=== PATIENT | female | born 1950 | race Caucasian/White ===

== ENCOUNTER 2019-07-29 11:46 | Outpatient (CLI) | payer MEDICARE, OTHER, SELFPAY ==
--- NOTE | 2019-07-29 12:10 | XR_ITS ---
WS: [id number] CHEST 2 VIEWS HISTORY: Bronchitis, acute, CHF COMPARISON: 12/03/2017 Lungs: Hyperinflated lungs with coarse interstitium. Interstitial thickening has slightly progressed since 12/03/2017. No mass or nodule. Biapical pleural thickening and calcification. Cardiac size: Mildly enlarged cardiac silhouette. Mediastinum/Aorta: Mild atherosclerosis aorta. Bones: Diffuse osteopenia. Increased thoracic kyphosis. Vertebral bodies are very difficult to discer n individually due to osteopenia. Prior median sternotomy. XR/XR chest 2V* [id number] IMPRESSION: 1. Chronic emphysema and interstitial fibrosis. 2. Progression of interstitial thickening since 12/03/2017. This may be progres gilbert of patient's fibrosis related to superimposed pneumonitis. No pneumonia.
== END 2019-07-29 11:47 | disposition home or self-care (01) ==
LOC: RADWPI 11:55
PROVIDERS: Family Provider Physician Assistant; PCP Electrodiagnostic Medicine; Referring Provider Electrodiagnostic Medicine; Visit Provider Electrodiagnostic Medicine
DX: J20.9 Acute bronchitis, unspecified (principal); I50.33 Acute on chronic diastolic (congestive) heart failure; J98.2 Interstitial emphysema; J84.10 Pulmonary fibrosis, unspecified
CPT/HCPCS: 71046

== ENCOUNTER 2019-08-06 10:40 | Outpatient (CLI) | payer MEDICARE, OTHER, SELFPAY ==
--- NOTE | 2019-08-06 10:55 | CT_ITS ---
WS: [id number] CT CHEST WITHOUT INTRAVENOUS CONTRAST HISTORY: COPD/OTHER INTERSTITIAL PULMONARY DZ W/ FIBROSIS TECHNIQUE: Contiguous 5 mm axial imaging performed on the thorax. Coronal and sagittal reformats are submitted. All CT scans at [facility] use at least one of these dose optimization techniq ues: automated exposure control; mA and/or kV adjustment per patient size (includes targeted exams wh ere dose is matched to clinical indication); or iterative reconstruction. CONTRAST: None DLP: 474.47 mGy.cm COMPARISON: Chest radiograph 07/29/2019 and 12/03/2017 Lungs and central airway: Marked pulmonary hyperinflation with no pneumonia. Chronic appearing periph eral interstitial thickening throughout all lobes. Greatest at the lung bases near the lingula and RI GHT middle lobe with honeycombing. There is mild bronchiectasis noted in the RIGHT lower lobe and RIG HT middle lobe and lingula. No mass or nodules. Pleura: Normal. No pleural effusion. Heart and pericardium: Moderately enlarged cardiac chambers. Severe, heavy calcification noted in the coronary arteries, greatest involving the LEFT anterior descending artery. Mediastinum and noni: Numerous mediastinal and hilar lymph nodes. These lymph nodes are not significa ntly enlarged and the normal fatty noni are still present. Vessels: Mild atherosclerosis aorta with no aneurysm. Pulmonary artery size is enlarged with a maximu m transverse diameter 3.1 cm. Chest wall and lower neck: Prior CABG and median sternotomy. Upper abdomen: Very large hiatal hernia. At least 50% of the stomach is intrathoracic. Visualized karma er is normal. Mild atherosclerosis aorta. Osseous structures: Increase in thoracic kyphosis. Reverse S-shaped thoracolumbar scoliosis. Numerous osteoporotic compression fractures are present throughout the thoracic spine. Fractures at T7, T9, T 11 and L1. No retropulsion or compromise of the thoracic cord. CT/CT chest wo con [id number] IMPRESSION: 1. Chronic emphysema with moderate interstitial fibrosis. 2. Mild bronchiectasis noted in the RIGHT lower lobe, RIGHT middle lobe and li ngula. 3. Severe tolowa dee-ni' coronary artery atherosclerosis with prior CABG. 4. Large hiatal hernia. Approximately 50% of the stomach is intrathoracic. 5. Numerous osteoporotic compression fractures.
== END 2019-08-06 10:41 | disposition home or self-care (01) ==
LOC: RAD 10:41 → RT 13:50
PROVIDERS: Family Provider Electrodiagnostic Medicine; PCP Electrodiagnostic Medicine; Visit Provider Electrodiagnostic Medicine
DX: J84.17 Other interstitial pulmonary diseases with fibrosis in diseases classified elsewhere (principal); J44.9 Chronic obstructive pulmonary disease, unspecified; J43.9 Emphysema, unspecified; J47.9 Bronchiectasis, uncomplicated; I25.10 Atherosclerotic heart disease of native coronary artery without angina pectoris; Z95.1 Presence of aortocoronary bypass graft; K44.9 Diaphragmatic hernia without obstruction or gangrene; M80.88XA Other osteoporosis with current pathological fracture, vertebra(e), initial encounter for fracture
CPT/HCPCS: 71250; 94010; 94729

== ENCOUNTER 2019-08-27 11:06 | Outpatient (CLI) | payer MEDICARE, OTHER, SELFPAY ==
[2019-08-27 12:22] LABS: C Reactive Protein 1.5 mg/L (0.0-4.9); Creatine Phosphokinase 42 U/L (26-192)
[2019-08-27 12:38] LABS: Erythrocyte Sedimentation Rate 14 mm/hr (0-15)
[2019-08-28 11:07] LABS: Aldolase 4.3 U/L (< OR = 8.1)
[2019-08-28 13:47] LABS: Cyclic Citrullinated Peptide <16 UNITS
[2019-08-28 14:12] LABS: Anti-Nuclear Antibody Screen NEGATIVE (NEGATIVE); SCL 70 <1.0 NEG AI (<1.0 NEG); SS A Ro Sjogrens Antibody <1.0 NEG AI (<1.0 NEG); SS-B/LA IGG <1.0 NEG AI (<1.0 NEG)
== END 2019-08-27 11:07 | disposition home or self-care (01) ==
LOC: LAB 11:12
PROVIDERS: Family Provider Electrodiagnostic Medicine; PCP Electrodiagnostic Medicine; Visit Provider Internal Medicine Critical Care Medicine
DX: J84.10 Pulmonary fibrosis, unspecified (principal)
CPT/HCPCS: 36415; 82085; 82550; 83516; 85651; 86038; 86140; 86235; 86431

== ENCOUNTER 2019-09-02 09:14 | Outpatient (CLI) | payer MEDICARE, OTHER, SELFPAY ==
--- NOTE | 2019-09-02 09:30 | CT_ITS ---
WS: [id number] CT CHEST WITHOUT INTRAVENOUS CONTRAST HISTORY: Pulmonary fibrosis TECHNIQUE: High-resolution chest CT with inspiration and expiration, supine and prone positioning. Al l CT scans at [facility] use at least one of these dose optimization techniques: automated exposure control; mA and/or kV adjustment per patient size (includes targeted exams where dose is ma tched to clinical indication); or iterative reconstruction. CONTRAST: None DLP: 83.57 mGy.cm COMPARISON: 08/06/2019 Lungs and central airway: Moderate pulmonary hyperexpansion. Moderate to severe honeycombing predomin antly at the lung bases bilaterally. Peripheral subpleural honeycombing and cystic areas in the perip umang of the upper lobes and RIGHT middle lobe. Prone positioning no significant improvement. Majority of the lacy reticular nodular changes remain similar on prone and supine positioning. Bronchiectasis noted in all lobes. 5 mm nodule in the periphery LEFT lower lobe is partially obscured on the prior study by interstitial thickening. Prior CABG and median sternotomy. Moderate atherosclerosis aorta. Pulmonary artery is enlarged measu ring 3.4 cm diameter. Upper abdomen: Very large hiatal hernia. Osseous structures: No destructive process. CT/CT chest wo con [id number] IMPRESSION: 1. Moderate to severe UIP. 2. Multilobar bronchiectasis. 3. Chronic emphysema. 4. Large hiatal hernia. 5. Prior CABG. 6. Pulmonary hypertension.
== END 2019-09-02 09:15 | disposition home or self-care (01) ==
LOC: CT 09:14
PROVIDERS: Family Provider Electrodiagnostic Medicine; PCP Electrodiagnostic Medicine; Visit Provider Internal Medicine Critical Care Medicine
DX: J84.10 Pulmonary fibrosis, unspecified (principal); J47.9 Bronchiectasis, uncomplicated; J43.9 Emphysema, unspecified; K44.9 Diaphragmatic hernia without obstruction or gangrene; Z95.1 Presence of aortocoronary bypass graft; I27.20 Pulmonary hypertension, unspecified
CPT/HCPCS: 71250

== ENCOUNTER 2019-11-17 10:38 | Outpatient (CLI) | payer MEDICARE, OTHER, SELFPAY ==
--- NOTE | 2019-11-17 10:47 | USCV_ITS ---
Raegan Ramirez Age: 69 Gender: F : 1950 Exam Date: 11/17/2019 10:54 Ordering Phys: Kings Diehl DO Technologist: Horacio Duarte Exam Location: [facility]_ Indication: RT PAIN AND SWELLING HISTORY: Lower extremity swelling. Lower extremity pain. PROCEDURES: Venous duplex imaging was performed in only the right lower extremity. The following venous structures were evaluated: common femoral vein, profunda vein, proximal portion of the greater saphenous vein, superficial femoral vein, and the popliteal vein. In addition, the posterior tibial and peroneal trunk were evaluated. On the right side, the common femoral, superficial femoral, profunda femoral, popliteal, posterior tibial, greater saphenous veins and the peroneal trunk were identified and interrogated in the standard fashion. These veins were found to be easily compressible with spontaneous blood flow. No evidence of insufficiency or thrombus noted. FINDINGS: Normal 2-D Doppler and augmentation and compressibility throughout the lower extremity venous structures. Additional imaging through the proximal calf veins also reveals no thrombus. Limited evaluation of the greater saphenous vein is patent with no thrombus.. The veins were found to be easily compressible with spontaneous blood flow. Non pulsatile flow pattern. CONCLUSIONS No evidence of DVT in the above-mentioned identifiable veins. Dr Leandro Mcdonald MD [facility] (Electronically Signed) Final Date: 18 Nov 2019 15:35 S
== END 2019-11-17 10:39 | disposition home or self-care (01) ==
LOC: RAD 10:42
PROVIDERS: Family Provider Electrodiagnostic Medicine; PCP Electrodiagnostic Medicine; Visit Provider Electrodiagnostic Medicine
DX: M79.604 Pain in right leg (principal); R60.0 Localized edema; K44.9 Diaphragmatic hernia without obstruction or gangrene; J84.17 Other interstitial pulmonary diseases with fibrosis in diseases classified elsewhere; J44.9 Chronic obstructive pulmonary disease, unspecified
CPT/HCPCS: 93971

== ENCOUNTER → 2020-03-02 15:35 | Outpatient (BNVA) | payer MEDICARE, OTHER, SELFPAY | PROVIDERS: Family Provider Electrodiagnostic Medicine; PCP Electrodiagnostic Medicine; Visit Provider Internal Medicine Cardiovascular Disease | DX: I25.110 Atherosclerotic heart disease of native coronary artery with unstable angina pectoris (principal) | CPT/HCPCS: 80048; 85025 ==

== ENCOUNTER 2020-03-05 14:58 | Observation (INO) | payer MEDICARE, OTHER, SELFPAY ==
[2020-03-05] VITALS (41 sets, daily range): BP systolic 101–174; BP diastolic 52–120; PULSE 72–96; RESP 15–33; TEMP 36.8; O2SAT 79–97; BMI 27.1
[2020-03-05] MEDS: diphenhydrAMINE 50 mg Capsule PO (11:58)
--- NOTE | 2020-03-05 12:30 | XACV_ITS ---
Ht: 165 cm Wt: 74 kg BSA: 1.86 m2 Gender: Female : 1950 Any Known Allergies: Other Exam Priority: Routine Procedure(s): Procedure Description: Diagnostic procedure Procedure Description: PCI procedure Procedure Description: Left Heart Catheterization Procedure Description: Right Heart Catheterization Procedure Description: O2 saturation Procedure Description: Drug Eluting Coronary Stent Procedure Description: PTCA Procedure Description: Coronary Angiography Diagnostic Findings LM has 0% stenosis. pLAD: Moderate 60% stenosis, CARMINA: 3 flow. mLAD: Moderate 65% stenosis, CARMINA: 3 flow. Proximal Circumflex Coronary Artery: Severe 95% stenosis, CARMINA: 2 flow. pRCA: Moderate 65% stenosis, CARMINA: 3 flow. mRCA: Severe 80% stenosis, CARMINA: 3 flow. RPDA: Severe 90% stenosis, CARMINA: 3 flow. BloodVessel1: Severe 90% stenosis, CARMINA: 3 flow. One graft visualized. SVG to dRCA: 100% stenosis, CARMINA: 0 flow. Coronary angiography shows co-dominance. Interventional Findings Proximal Circumflex Coronary Artery: 95% stenosis treated with AB TREK 2.50X12 RX BALLOON, MDTabitha R MARCY 3.0X15 NATE, and MDT RIP EUPHORA RX [id number] BALLOON. 0% residual stenosis, CARMINA: 3 flow. Conclusions There is severe coronary artery disease with three vessel disease. All grafts diseased. Patient has prior CABG. Proximal Circumflex Coronary Artery was treated with two Balloon and Drug Eluting Stent. 70-year-old female who underwent left heart cath for unstable angina with history of prior CABG with unknown grafts. She was found to have moderate proximal mid LAD and significant 95% proximal moderate size and caliber left circumflex artery. RCA has multiple tandem stenosis throughout and proximal mid and distal branches as defined above. We were only able to find single graft that is SVG to RCA and was chronically occluded. ACOSTA was not attached. There was no SVG to circumflex was noted. We fixed proximal circumflex artery with drug-eluting stent followed by noncompliant balloon post dilation. Aortogram was also performed to look for any other graft towards LAD or circumflex however it did not light up any grafts. We have requested for prior CABG notes. Recommendations 1-Return to inpatient for close monitoring and routine cath care 2-Risk factor modification for secondary prevention 3-Statin and aspirin 81 mg life--long, if tolerated 4-Patient was pre-loaded with 600 mg of Plavix, continue Plavix 75mg p.o. daily for at least one year. We will assess at the end of one year again to continue if further or not 5-Continue optimal medical management 6-Follow up with Dr. Nguyễn in four weeks and your primary care in 10 days . Diagnostic RX Recommendation: PCI w/o planned CABG Pressures Phase:Rest AO : 178 mmHg / 77 mmHg ( 118 mmHg ) @ 8:47:00 AM 154 mmHg / 61 mmHg ( 100 mmHg ) @ 9:04:00 AM 154 mmHg / 61 mmHg ( 99 mmHg ) @ 9:04:00 AM 140 mmHg / 70 mmHg ( 102 mmHg ) @ 9:07:00 AM LV : 158 mmHg / -7 mmHg / @ 9:04:00 AM 159 mmHg / -7 mmHg / @ 9:04:00 AM 159 mmHg / -6 mmHg / @ 9:04:00 AM RV : 39 mmHg / -17 mmHg / @ 8:31:00 AM 38 mmHg / -16 mmHg / @ 8:31:00 AM 47 mmHg / -7 mmHg / @ 8:40:00 AM 51 mmHg / -1 mmHg / @ 8:41:00 AM PA : 43 mmHg / 6 mmHg ( 19 mmHg ) @ 8:37:00 AM 50 mmHg / 10 mmHg ( 29 mmHg ) @ 8:38:00 AM RA : a wave = v wave = mean = 6 mmHg @ 8:42:00 AM O2 Content Phase:Rest PA : O2 Content O2: 62.6 % @ 8:47:00 AM Saturations Phase:Rest AO : 86 % @ 9:07:00 AM RA : 62 % @ 9:04:00 AM RV : 60 % @ 9:04:00 AM PA : 63 % @ 8:47:00 AM Cardiac Output Phase:Rest Dominique : 4 l/min @ 8:47:00 AM Dominique Cardiac Index: 2 L/min/m2 @ 8:47:00 AM Valves Phase:DefaultPhase AV : 5.0 mmHg @ 2:38:35 PM AV Mean Gradient: 6.0 mmHg @ 2:38:35 PM 6.0 mmHg @ 2:38:35 PM Clinical Evaluation EBL: 5mL-10mL Procedural Details Procedure Consent Obtained. Pre-Procedure Time Out. Identified patient by full name and date of as verbalized by the patient/guarantor. Does the consent match the physician's order: Yes. Accurate & Complete Informed Consent: Yes. Inpatient/Outpatient History & Physical on Chart: Yes. If H&P is completed, is and addenduem needed: N/A; If yes, is the addendum complete: N/A. Visualize and Verify Site with Patient/Guarantor: N/A. Relevant Radiology Images available: Yes. Pre-op teaching completed and patient verbalized understanding. The risks, benefits, and alternatives of sedation and/or procedure were discussed by physician. The patient agrees to continue. Procedure started. Correct patient, site and procedure confirmed by cath team. PERRLA. Strong, equal hand top precipitator operator helper bilaterally. Lungs clear x 5 lobes. IV Site on Arrival: 18 gauge in the left anticubital. IV Fluids: 0.9% NaCl at KVO. 0 mL infused prior to laboratory monitor. Pre Procedural Pulses: bilateral dorsalis pedis was 3+. Pre Procedural Pulses: bilateral posterior tibial was 3+. Pre Procedural Pulses: bilateral radial was 3+. Oxygen started at 2liters/min via nasal canula. bilateral groins was prepped with chloroprep then draped in the usual sterile fashion. Physician notified. Baseline sample Acquired. HR: 79 BPM. Equipment: 6F - Femoral. Cardiac Cath Pack. ACIST Manifold Kit Model BT 2000. Heparinized Saline (2 units/mL), 1000 mL bag. Kit, Micropuncture. Physician arrived. Physician scrubbed in. Immediate Pre-Procedure Time Out. Correct Patient: Yes; Correct Procedure: Yes; Correct Site: Yes; Correct Patient Position: Yes; Correct Supplies: Yes; Dried Flammable Prep: Yes; Blood Products Available: No;. Lidocaine 1% infiltrated to the right groin. Patient's family updated. pt placed on room air for right heart cath. Venous access obtained with a micropuncture set. Arterial access obtained with micropuncture set. wire and needle out. [place] MON catheter inserted. Inventory is TR Glidewire Angled .025 180cm. glidewire inserted into swan. wire out. [place] out. A 5 bahamian JL4 catheter in over wire. Multiple views taken of left coronary artery. pt placed on 2 lpm nc. Catheter out. A 5 bahamian JR4 catheter in over wire. SVG to RCA occluded. ACOSTA to LAD visualized. Side port of sheath attached to Normal Saline flush at KVO to maintain patency. EDP Sample taken: LV 158/-8,17; HR: 82 BPM; SpO2: 99%. Pullback taken: LV 159/-7,17; AO 154/61(100); Mean: 6mmHg, Peak to Peak: 5mmHg, SEP: 22sec/min; HR: 82 BPM; SpO2: 99%. Aortogram performed in WOLOF @ 20 mL/second for a total of 40 mL. A 5 bahamian Angled Pig catheter in over wire. Inventory is TR 180cm Runthrough NS extra floppy 0.014 wire. 6 bahamian XB 3 guide catheter was inserted over the wire. Runthrough guidewire was advanced through the guide catheter to lesion in the prox Circ. Inflation number : 1 A AB TREK 2.50X12 RX BALLOON was prepped and advanced across the Prox CX , then inflated to 12 JONNATHAN for 0:15 seconds. Inflation number: 2 The AB TREK 2.50X12 RX BALLOON was reinflated across the Prox CX, to 18 JONNATHAN for 0:14 seconds. Results checked. Balloon out. Inflation Number : 3 A MDT R MARCY 3.0X15 NATE -Lot Number# [id number] exp 09-08-2021 was prepped and advanced across the Prox CX. The stent was deployed at 14 JONNATHAN for 0:18 seconds. Stent balloon out over wire. Inflation number : 4 A MDT NC EUPHORA RX [id number] BALLOON was prepped and advanced across the Prox CX , then inflated to 14 JONNATHAN for 0:12 seconds. Inflation number: 5 The MDT NC EUPHORA RX [id number] BALLOON was reinflated across the Prox CX, to 15 JONNATHAN for 0:20 seconds. Wire out. ACT drawn. Results 254 seconds. Therapeutic limits - pre-heparin administration 90-150 seconds and monitoring heparin during a vascular procedure >250 seconds. Guide catheter out. A Suture was successful obtaining hemostatsis at the Right Femoral vein insertion site. A Suture was successful obtaining hemostatsis at the Right Femoral artery insertion site. Sheath(s) sutured into position with 2-0 silk and sterile 4x4's and Op-site applied over the site. No oozing or signs and symptoms of hematoma noted. Arterial sheath flushed and connected to tranducer and pressure bag with heparinized saline. Post Procedure: Pulses reassessed and unchanged. PERRLA. Strong, equal hand top precipitator operator helper bilaterally. No VTE prophylaxis required. Fluoro: 23:00. Contrast type used: Omnipaque 300 mgI/mL, 500 mL bottle. [id number]. PCI Indication: New Onset Angina. Post-op diagnosis: obstructive CAD. Complications: none. Estimated blood loss: 5mL-10mL. Procedure completed. Total IV fluids: 154 mL. Medication's Wasted: Heparin = 2000 units. Medication's Wasted: Lidocaine 1% = 2 mL. Medication's Wasted: Other = versed 1. mg. Medication's Wasted: Other = fentanyl 50 mcg. Patient transferred by bed to 1st floor. Vital chart was stopped. Site: Right Femoral vein Sheath Size: 6 Fr Hemostasis Method: Suture Hemostasis Success: Successful Site: Right Femoral artery Sheath Size: 6 Fr Hemostasis Method: Suture Hemostasis Success: Successful Procedure Medications Start: 1:05 PM Stop: 1:05 PM Medication: Versed Amount: 1 mg Route: I.V. Start: 1:05 PM Stop: 1:05 PM Medication: Fentanyl Amount: 50 mcg Route: I.V. Start: 1:11 PM Stop: 1:11 PM Medication: Versed Amount: 1 mg Route: I.V. Start: 1:11 PM Stop: 1:11 PM Medication: Fentanyl Amount: 50 mcg Route: I.V. Start: 1:40 PM Stop: 1:40 PM Medication: Versed Amount: 1 mg Route: I.V. Start: 2:03 PM Stop: 2:03 PM Medication: Heparin Amount: 5000 units Route: I.V. Start: 2:03 PM Stop: 2:03 PM Medication: Versed Amount: 1 mg Route: I.V. Start: 2:11 PM Stop: 2:11 PM Medication: Heparin Amount: 2000 units Route: I.V. Start: 2:19 PM Stop: 2:19 PM Medication: Versed Amount: 1 mg Route: I.V. Start: 2:19 PM Stop: 2:19 PM Medication: Fentanyl Amount: 50 mcg Route: I.V. I, the attending physician, have reviewed and verified all procedure medications. Yes, all medications given per verbal order History/Risk Factors Hypertension: Yes Dyslipidemia: No Peripheral Arterial Disease (PAD): No Myocardial Infarction (NH): No Obesity: Yes Renal Disease: No Tobacco Use: Former Prior Interventions PCI: No CABG: Yes Valve Surgery: No Report Signatures Finalized by:Tiana Nguyễn MD on 03/14/2020 2:27:41 PM
[2020-03-05 17:12] LABS: Partial Thromboplastin Time 174.9 SECONDS (23.9-36.7)
[2020-03-05] MEDS: metoprolol tartrate 25 mg Tablet PO (17:54)
--- NOTE | 2020-03-05 18:32 | PC.NURSE ---
Patient does not have any complaints at this time. Patient was assisted onto bedpan by 2 nurses and back off. Patient educated on bedrest and post-cath activity restrictions and verbalized understanding. Call light is within reach. Will monitor.
[2020-03-05 18:36] LABS: Partial Thromboplastin Time 57.7 SECONDS (23.9-36.7)
[2020-03-05 20:26] LABS: Partial Thromboplastin Time 31.9 SECONDS (23.9-36.7)
[2020-03-05] MEDS: ondansetron 2 mg/ML SDV 2 mL 4 MG IVP (21:56)
[2020-03-05] MEDS: fentaNYL 50 mcg/mL INJ 2mL IVP (22:15)
--- NOTE | 2020-03-05 22:18 | PC.NURSE ---
Arterial sheath removed at 2130. Difficulty controlling bleeding. Dr. Nguyễn contacted and came to room. Dr. Nguyễn able to gain control. Venous sheath removed and manual pressure held. Patient developed hematoma to right groin after sheath was removed, which is now soft. Patient's vital signs remained stable throughout. Patient has been educated on activity restrictions and bedrest and verbalized understanding. Will monitor patient frequently.
[2020-03-06] VITALS (21 sets, daily range): BP systolic 109–151; BP diastolic 62–74; PULSE 76–93; RESP 14–25; TEMP 36.6; O2SAT 91–98
--- NOTE | 2020-03-06 02:33 | PC.NURSE ---
No changes in site to right groin. no hematoma present at this time. VSS. Will monitor.
--- NOTE | 2020-03-06 04:17 | PC.NURSE ---
Patient ambulated with nurse. Right groin site has no changes and is WNL before and after. VSS before and after.
[2020-03-06 05:41] LABS: Basophils # 0.1 10^3/uL (0.0-0.1); Basophils % 0.6 %; Eosinophils # 0.1 10^3/uL (0.0-0.8); Eosinophils % 1.7 %; Hematocrit 35.2 % (37.0-47.0); Hemoglobin 10.8 g/dL (11.5-15.3); Lymphocytes # 1.3 10^3/uL (0.8-4.8); Lymphocytes % 15.3 %; Mean Corpuscular HGB Conc 30.7 g/dL (30.0-36.0); Mean Corpuscular Hemoglobin 27.8 pg (28.0-34.0); Mean Corpuscular Volume 90.7 fL (81-99); Mean Platelet Volume 9.9 fL (7.4-10.4); Monocytes # 0.6 10^3/uL (0.2-0.9); Monocytes % 7.8 %; Neutrophils # 6.12 10^3/uL (1.8-7.7); Neutrophils % 74.2 %; Nucleated Red Blood Cells % 0 %; Platelet Count 150 10^3/cmm (130-400); Red Blood Count 3.88 10^6/uL (4.1-5.3); Red Cell Distribution Width 14.9 % (12.1-15.1); White Blood Count 8.2 10^3/uL (4.0-10.0)
[2020-03-06 06:09] LABS: Blood Urea Nitrogen 8 mg/dL (8-23); Calcium 8.2 mg/dL (8.5-10.5); Carbon Dioxide 24 mmol/L (22-29); Chloride 108 mmol/L (98-107); Glucose 102 mg/dL (65-115); Osmolality Calculated 286 mOsm/kg (285-295); Sodium 140 mmol/L (136-145)
[2020-03-06 06:15] LABS: Anion Gap 12.5 (5-19); Potassium 4.5 mmol/L (3.5-5.1)
[2020-03-06] MEDS: isosorbide mononitrate ER 30 mg Tablet PO (09:04)
[2020-03-06] MEDS: metoprolol tartrate 25 mg Tablet PO (09:04)
[2020-03-06] MEDS: clopidogrel 75 mg Tablet PO (09:04)
[2020-03-06] MEDS: aspirin 81 mg EC Tablet PO (09:46)
[2020-03-06] MEDS: alum-mag-hydroxide-sime 30 mL UDC PO (09:46)
--- NOTE | 2020-03-06 10:22 | PM.DCS ---
Discharge Providers Date of Admission: 03/05/20 14:58 Date of Discharge: March 06, 2020 Attending Provider at Admission: Tiana Nguyễn MD Attending Provider at Discharge: Adria Wright MD Primary Care Provider: Kings Diehl DO Diagnoses at Discharge Discharge Diagnosis (1) Status post coronary artery stent placement: Status: Acute (2) CAD (coronary artery disease): Status: Acute (3) Pulmonary hypertension: Status: Acute (4) Essential (primary) hypertension: Status: Acute Reason for Visit Reason for Visit: Brief History: 70-year-old female past medical history significant for history of tobacco abuse, history of COPD with severe pulmonary hypertension, history of CABG x3, 4 years ago recently been referred to Dr. Nguyễn for worsening of shortness of breath, chest pressure upon mild exertion. According to the patient last few months has been downhill. She started noticing increasing fatigue with chest pressure upon mild to moderate exertion and now to the extent that taking few steps can make her extremely short of breath and brings a chest pain on. She has to sit down to get over it. Nitroglycerin relieves the chest pain. At occasion she has been awakened from the sleep with chest pain. She has not had recent stress test. She does not think that she can do the stress test as chest pain is occurring on daily basis. She denies otherwise PND orthopnea presyncope or syncope recent echocardiogram showed ejection fraction to be normal 65%. Given her significant chest pain history plan was to perform right and left heart cath. Hospital Course Hospital Course: Patient came for right and left heart cath. Coronary angiography demonstrated occluded SVG to RCA no other grafts were found on aortogram. ACOSTA was not used as a graft. There was severe 95% stenosis of proximal left circumflex artery that underwent PCI with a drug-eluting stent. She was put on aspirin and Plavix. Her Imdur was stopped and beta-glen was uptitrated. She has documented significant adverse effects with statins. On post procedure day 1, she was doing well. Her groin access site was normal without any evidence of hematoma. She denied any chest pain, shortness of breath or palpitations. Patient was discharged in a stable condition. Physical Exam Narrative: EXAM NARRATIVE: GENERAL: Patient is alert, awake and oriented x3. [] NECK: No jugular vein distension. [] HEENT: No cyanosis. No icterus. No pallor. [] HEART: Regular S1 and S2. No murmur, rub or gallop. [] LUNGS: Bilateral crackles present [] ABDOMEN: Soft, nontender and nondistended. Positive bowel sounds. No guarding, rebound or tenderness. [] CENTRAL NERVOUS SYSTEM: Grossly nonfocal. [] EXTREMITIES: Lower extremities with no significant edema bilaterally. Pulses palpable in the lower extremities, both dorsalis pedis and posterior tibial. [] Discharge Data Data Completed and Pending: Pending at discharge Category Date Time Status ROUTE [employer]OR request for service Routin e Exams 03/05/20 12:30 Taken Labs from last 24 hours 03/06/20 03/06/20 03/05/20 05:00 05:00 20:00 WBC 8.2 RBC 3.88 L Hgb 10.8 L Hct 35.2 L MCV 90.7 MCH 27.8 L MCHC 30.7 RDW 14.9 Plt Count 150 MPV 9.9 Neut % (Auto) 74.2 Lymph % (Auto) 15.3 [place] % (Auto) 7.8 Eos % (Auto) 1.7 Baso % (Auto) 0.6 Neut # (Auto) 6.12 Lymph # (Auto) 1.3 [place] # (Auto) 0.6 Eos # (Auto) 0.1 Baso # (Auto) 0.1 Nucleated RBC % (a uto) 0 Nucleated RBCs # 0.0 APTT 31.9 Sodium 140 Potassium 4.5 Chloride 108 H Carbon Dioxide 24 Anion Gap 12.5 BUN 8 Creatinine 0.6 GFR Calculation Not Reportable Glucose 102 Calculated Osmolal ity 286 Calcium 8.2 L 03/05/20 03/05/20 18:16 16:28 WBC RBC Hgb Hct MCV MCH MCHC RDW Plt Count MPV Neut % (Auto) Lymph % (Auto) [place] % (Auto) Eos % (Auto) Baso % (Auto) Neut # (Auto) Lymph # (Auto) [place] # (Auto) Eos # (Auto) Baso # (Auto) Nucleated RBC % (a uto) Nucleated RBCs # APTT 57.7 H D 174.9 H* Sodium Potassium Chloride Carbon Dioxide Anion Gap BUN Creatinine GFR Calculation Glucose Calculated Osmolal ity Calcium Vitals: Last Vital Signs Temp 97.9 F 03/06/20 08:00 Pulse 86 03/06/20 08:00 Resp 18 03/06/20 08:00 BP 109/68 03/06/20 08:00 Pulse Ox 94 03/06/20 08:00 Discharge Plan Discharge Patient Disposition: Home Condition: Stable Prescriptions: New clopidogrel 75 mg Tablet 75 mg PO DAILY Qty: 30 RF: 6 aspirin 81 mg Tablet,Delayed Release (Dr/Ec) 81 mg PO DAILY Qty: 30 RF: 3 Continued cholecalciferol (vitamin D3) 100 mcg (4,000 unit) capsule 100 mcg PO DAILY RF: 0 magnesium oxide 400 mg magnesium capsule 400 mg PO DAILY RF: 0 vitamin B complex [B Complex-Vitamin B12] Tablet 1 tab PO DAILY RF: 0 esomeprazole magnesium [Nexium] 40 mg capsule,delayed release(DR/EC) 40 mg PO DAILY RF: 0 clopidogrel [Plavix] 75 mg tablet 75 mg PO DAILY Qty: 60 RF: 3 metoprolol tartrate 25 mg tablet 50 mg PO BID Qty: 120 RF: 6 Discontinued metoprolol tartrate 25 mg tablet 25 mg PO BID RF: 0 isosorbide mononitrate 30 mg tablet extended release 24 hr 30 mg PO DAILY Qty: 30 RF: 3 Discharge Orders: Discharge Order (Routine); Ordered 03/06/20 Ordered By: Adria Wright Referrals: Tiana Nguyễn MD [Physician] - 1 month ([facility] WILL CALL YOU ON SUNDAY MORNING WITH AN APPOINTMENT TO SEE DR. NGUYỄN TO BE SEEN IN 4 WEEKS. IF YOU HAVE NOT HEARD FROM [facility] BY SUNDAY AFTERNOON, PLEASE CALL THEM AT [phone]. ) Maribel Nichols FNP [Nurse Practitioner] - 7-10 days ([facility] WILL CALL YOU SUNDAY MORNING WITH A FOLLOW UP APPOINTMENT TO BE SEEN IN 7-10 DAYS WITH MARIBEL NICHOLS NP. IF YOU HAVEN'T HEARD FROM [facility] BY SUNDAY AFTERNOON, PLEASE CALL THEM AT [phone]. ) Discharge Diet: Cardiac Discharge Activity: Increase activity as tolerated Patient Instructions: Left Heart Catheterization (DC) Activity Restrictions/Additional Instructions: Please do not lift more than 5 pounds of weight for the next 1 week Discharge Date/Time: 03/06/20 11:45 Discharge Attestations Time Spent in Discharge Care*: greater than 30 min Quality Metrics Clinical Quality Measures During this hospital stay, did patient experience: None Coding Level of Care Code Acute Program Management Manager for Chg Fwd Diagnoses Status post coronary artery stent placement Z95.5 CAD (coronary artery disease) I25.10 Pulmonary hypertension I27.20 Essential (primary) hypertension I10
--- NOTE | 2020-03-06 11:29 | PC.CHAP ---
Pastoral Care Encounter/Spiritual Assessment Type of Contact [] Declined railway station manager visit [] Patient/Family/Request visit [] Outpatient visit [] Follow-up visit [] Physician referral [] Code/Alert [X] Routine visit [] Staff referral [] Actively dying [] Patient sleeping [] Family support [] [] Out of room [] Palliative care [] [] Receiving care in room [] Pre-surgical visit [] Trauma [] Long length of stay [] ICU visit [] Other: Relational/Emotional Strength [X] Patient feels connected with others/family/visitors/staff [] Distress [] Loneliness/isolation [] Abandonment Spirituality of Patient [X] Person of Noemi [] Attends Advent of their Noemi [X] Believes in Prayer [] Reads Bible or Confucianism materials [] There are Spiritual issues to be addressed [employer] Custodian Interventions [X] Prayer [X] Active listening [X] Non-anxious presence [] Spiritual/emotional support [] Crisis/trauma care [] Spiritual counseling [] Bereavement support [] Provided bereavement packet [] Provided Bible/devotional materials [] Provided toy/stuffed animal, coloring book to patient or family member [] Provided Communion [] Anointing/[place] [] Salvation [X] Completed spiritual assessment [] Other: Impact on Illness or Injury [] Angry [] Fearful [] Anxious [] Often cries [] Exhaustion [] Unable to work [] Unable to attend yazidi [] Unable to walk/stand [] Unable to read [] Unable to drive [] Unable to eat/drink [] Unable to sleep [] Unable to be with family [] Patient intubated [] Other: Summary: Pt feeling much better since her stint was placed. She also has pulmonary fibrosis requiring oxygen at home. Despite the health issues, she remains fiercely independent. Her sister and extended family live in the area, and she is connected with them. Her focus is primarily on maintaining her quality of life, as she defines it for herself. Time spent with patient: 15 mins
--- NOTE | 2020-03-16 20:33 | W.PM.OPSUD ---
Surgery/Procedure H&P Update DATE OF PROCEDURE: March 16, 2020 DATE H&P PERFORMED: 03/02/20 H&P UPDATE INFORMATION: I have reviewed H&P completed within last 30 days, I have examined patient prior to procedure and No changes to prior documentation PREOP DIAGNOSIS: chest pain PLANNED PROCEDURE: Operation Date: 03/05/20 12:30 Proposed Procedures p Cardiac Catheterization(Bilateral) - Tiana Nguyễn MD PATIENT REASSESSED PRIOR TO SEDATION, WITH NO CHANGE NOTED: Yes PHYSICAL EXAM: alert, oriented x 3, clear to auscultation bilaterally and regular rate & rhythm AIRWAY EVAL/ANESTHESIA PLAN: ASA II, Risks, benefits & alternatives of sedation and/or procedure discussed and Patient agrees to continue as planned
== END 2020-03-06 11:45 | disposition home or self-care (01) ==
LOC: CSU 03-06 10:21
PROVIDERS: Admitting Provider Internal Medicine Cardiovascular Disease; PCP Electrodiagnostic Medicine; Visit Provider Internal Medicine Cardiovascular Disease
DX: I25.110 Atherosclerotic heart disease of native coronary artery with unstable angina pectoris (principal); I27.20 Pulmonary hypertension, unspecified; I10 Essential (primary) hypertension; J44.9 Chronic obstructive pulmonary disease, unspecified; R07.9 Chest pain, unspecified; Z79.82 Long term (current) use of aspirin; Z79.02 Long term (current) use of antithrombotics/antiplatelets; Z95.1 Presence of aortocoronary bypass graft
CPT/HCPCS: 12345; 36415; 80048; 85025; 85347; 85730; 93461; 96375; C1725; C1751; C1769; C1874; C1887; C1894; C9600; G0378; J1644; J2250; J2405; J3010; J3490; J7030; Q0163; Q9967

== ENCOUNTER → 2020-03-12 11:34 | Outpatient (BNVA) | payer MEDICARE, OTHER, SELFPAY | PROVIDERS: PCP Electrodiagnostic Medicine; Visit Provider Nurse Practitioner Family | DX: I25.10 Atherosclerotic heart disease of native coronary artery without angina pectoris (principal) | CPT/HCPCS: 80048 ==

== ENCOUNTER 2020-05-27 10:03 | Outpatient (RCR) | payer MEDICARE, OTHER, SELFPAY | END 2020-06-14 23:59 | disposition home or self-care (01) | LOC: PULRHB 10:03 | PROVIDERS: PCP Electrodiagnostic Medicine; Visit Provider Internal Medicine Critical Care Medicine | DX: I27.20 Pulmonary hypertension, unspecified (principal) | CPT/HCPCS: 94618; G0237; G0238; G0239 ==

== ENCOUNTER 2020-06-15 06:00 | Outpatient (RCR) | payer MEDICARE, OTHER, SELFPAY | END 2020-07-15 23:59 | disposition home or self-care (01) | LOC: PULRHB 06:00 | PROVIDERS: PCP Electrodiagnostic Medicine; Visit Provider Internal Medicine Critical Care Medicine | DX: J44.9 Chronic obstructive pulmonary disease, unspecified (principal) | CPT/HCPCS: G0237; G0238 ==

== ENCOUNTER 2020-06-24 09:45 | Outpatient (CLI) | payer MEDICARE, OTHER, SELFPAY ==
--- NOTE | 2020-06-24 10:00 | CT_ITS ---
WS: [id number] CTA OF THE CHEST WITH PULMONARY EMBOLISM PROTOCOL TECHNIQUE: High-resolution contrast enhanced CTA of the chest with coronal and sagittal reformatted i mages with pulmonary embolism protocol. MIP images are also reviewed. CLINICAL INFORMATION: Shortness of breath COMPARISON: CT chest 09/02/2019 and 08/06/2019 DLP: 674.[address] scans at [facility] use at least one of these dose optimization techniques: automat ed exposure control; mA and/or kV adjustment per patient size (includes targeted exams where dose is matched to clinical indication); or iterative reconstruction. FINDINGS: Proximal main pulmonary arteries are patent. Segmental and subsegmental pulmonary arteries are patent . No evidence of pulmonary embolus. Prior sternotomy. Large esophageal hiatal hernia. Moderate chronic emphysematous changes. No acute pu lmonary infiltrates. No consolidation or pleural fluid. Scattered areas of fibrosis. No mediastinal o r hilar lymphadenopathy. No axillary lymphadenopathy. Adrenal glands are normal. Thoracic scoliosis convex right. Chronic compression deformities mid and lower thoracic spine. Thorac ic kyphosis. Adrenal glands are normal. CT/CT angio chest PE protcl [id number] IMPRESSION: 1. No evidence of pulmonary embolus. 2. Advanced chronic emphysematous changes. No acute pulmonary infiltrates. 3. Scattered areas of fibrosis with pleural plaques in the right upper lobe. H istory of UIP. 4. Thoracic scoliosis and kyphosis with chronic appearing compression deformit ies.
[2020-06-24 10:19] LABS: Blood Urea Nitrogen 14 mg/dL (8-23)
[2020-06-24] MEDS: iohexol 350 mg/mL 100 mL Btl IV (10:31)
== END 2020-06-24 09:46 | disposition home or self-care (01) ==
LOC: RADWPI 09:49
PROVIDERS: Internal Medicine Cardiovascular Disease; PCP Electrodiagnostic Medicine; Visit Provider Internal Medicine Critical Care Medicine
DX: R06.02 Shortness of breath (principal); I25.810 Atherosclerosis of coronary artery bypass graft(s) without angina pectoris; M41.84 Other forms of scoliosis, thoracic region
CPT/HCPCS: 71275; 82565; 84520; Q9967

== ENCOUNTER 2020-07-16 06:00 | Outpatient (RCR) | payer MEDICARE, OTHER, SELFPAY | END 2020-08-15 23:59 | disposition home or self-care (01) | LOC: PULRHB 06:00 | PROVIDERS: PCP Electrodiagnostic Medicine; Visit Provider Internal Medicine Critical Care Medicine | DX: I27.20 Pulmonary hypertension, unspecified (principal) | CPT/HCPCS: G0237; G0238 ==

== ENCOUNTER 2020-08-16 06:00 | Outpatient (RCR) | payer MEDICARE, OTHER, SELFPAY | END 2020-09-12 23:59 | disposition home or self-care (01) | LOC: PULRHB 06:00 | PROVIDERS: PCP Electrodiagnostic Medicine; Visit Provider Internal Medicine Critical Care Medicine | DX: I27.20 Pulmonary hypertension, unspecified (principal) | CPT/HCPCS: G0237; G0238 ==

== ENCOUNTER 2020-09-13 06:00 | Outpatient (RCR) | payer MEDICARE, OTHER, SELFPAY | END 2020-10-13 23:59 | disposition home or self-care (01) | LOC: PULRHB 06:00 | PROVIDERS: PCP Electrodiagnostic Medicine; Visit Provider Internal Medicine Critical Care Medicine | DX: I27.20 Pulmonary hypertension, unspecified (principal) | CPT/HCPCS: G0237; G0238; G0239 ==

== ENCOUNTER 2020-10-18 11:40 | Outpatient (CLI) | payer MEDICARE, OTHER, SELFPAY ==
[2020-10-18 12:29] LABS: Basophils # 0.1 10^3/uL (0.0-0.1); Basophils % 0.7 %; Eosinophils # 0.5 10^3/uL (0.0-0.8); Eosinophils % 4.3 %; Hematocrit 36.7 % (37.0-47.0); Hemoglobin 11.2 g/dL (11.5-15.3); Lymphocytes # 2.3 10^3/uL (0.8-4.8); Lymphocytes % 21.5 %; Mean Corpuscular HGB Conc 30.5 g/dL (30.0-36.0); Mean Corpuscular Hemoglobin 25.3 pg (28.0-34.0); Mean Corpuscular Volume 82.8 fL (81-99); Monocytes # 0.8 10^3/uL (0.2-0.9); Monocytes % 7.2 %; Neutrophils # 7.05 10^3/uL (1.8-7.7); Neutrophils % 65.8 %; Nucleated Red Blood Cells % 0 %; Platelet Count 297 10^3/cmm (130-400); Red Blood Count 4.43 10^6/uL (4.1-5.3); Red Cell Distribution Width 15.8 % (12.1-15.1); White Blood Count 10.7 10^3/uL (4.0-10.0)
[2020-10-18 12:39] LABS: Alanine Aminotransferase 19 U/L (0-33); Albumin Level 3.8 g/dL (3.5-5.2); Alkaline Phosphatase 87 IU/L (35-105); Anion Gap 11.4 (5-19); Aspartate Amino Transferase 16 U/L (0-32); Blood Urea Nitrogen 15 mg/dL (8-23); Calcium 9.2 mg/dL (8.5-10.5); Carbon Dioxide 25 mmol/L (22-29); Chloride 105 mmol/L (98-107); Globulin 2.5 g/dL (1.3-4.6); Glucose 100 mg/dL (65-115); Osmolality Calculated 287 mOsm/kg (285-295); Potassium 3.4 mmol/L (3.5-5.1); Sodium 138 mmol/L (136-145); Total Bilirubin 0.4 mg/dL (0.15-1.2); Total Protein 6.3 g/dL (6.6-8.7)
== END 2020-10-18 11:41 | disposition home or self-care (01) ==
LOC: LAB 11:47
PROVIDERS: PCP Electrodiagnostic Medicine; Visit Provider Internal Medicine Critical Care Medicine
DX: J84.112 Idiopathic pulmonary fibrosis (principal)
CPT/HCPCS: 36415; 80053; 85025

== ENCOUNTER 2020-11-16 13:52 | Outpatient (CLI) | payer MEDICARE, OTHER, SELFPAY ==
--- NOTE | 2020-11-16 14:00 | CT_ITS ---
WS: [id number] CT CHEST ANGIOGRAPHY WITH REFORMATS HISTORY: DYSPNEA AT REST, SLEEP APNEA, COPD TECHNIQUE: Contiguous axial images are obtained through the chest during arterial injection of intrav enous contrast. Images are reconstructed to evaluate the pulmonary arteries. MIP imaging also reviewe d. All CT scans at [facility] use at least one of these dose optimization techniques: aut omated exposure control; mA and/or kV adjustment per patient size (includes targeted exams where dose is matched to clinical indication); or iterative reconstruction. CONTRAST: Omnipaque 350; 95 mL IV. DLP: 692.38 mGycm COMPARISON: 06/24/2020 Excellent opacification of the pulmonary arteries. No filling defects or pulmonary emboli. Moderate a therosclerotic plaque within the aorta. Calcified plaque and intimal thickening with no aneurysm. Med iastinal and hilar lymph nodes are stable. Indeterminate but stable lymph nodes measuring up to 10 mm . Pleural plaque at the apices bilaterally. There is extensive pulmonary fibrotic changes bilaterally greatest in the lung bases. Honeycombing with traction bronchiectasis. No significant progression of UIP since the prior study. No pneumonia. Prior CABG. Large hiatal hernia. Tricuspid regurgitation into the hepatic veins. RIGHT convex curvature thoracic spine. 50% L1 compression fracture. Mild anterior wedging of T7, T9 a nd T11. CT/CT angio chest PE protcl [id number] IMPRESSION: 1. No pulmonary embolism. 2. Pulmonary fibrosis is unchanged. 3. Prior compression fractures at T7, T9, T11 and L1. 4. Large hiatal hernia.
[2020-11-16] MEDS: iohexol 350 mg/mL 100 mL Btl IV (14:28)
== END 2020-11-16 13:53 | disposition home or self-care (01) ==
LOC: RADWPI 13:58
PROVIDERS: PCP Electrodiagnostic Medicine; Visit Provider Electrodiagnostic Medicine
DX: R06.00 Dyspnea, unspecified (principal); G47.30 Sleep apnea, unspecified; J44.9 Chronic obstructive pulmonary disease, unspecified; K44.9 Diaphragmatic hernia without obstruction or gangrene; S22.069A Unspecified fracture of T7-T8 vertebra, initial encounter for closed fracture; S22.079A Unspecified fracture of T9-T10 vertebra, initial encounter for closed fracture; S22.089A Unspecified fracture of T11-T12 vertebra, initial encounter for closed fracture; S32.019A Unspecified fracture of first lumbar vertebra, initial encounter for closed fracture; X58.XXXA Exposure to other specified factors, initial encounter
CPT/HCPCS: 71275; Q9967

== ENCOUNTER 2020-11-26 11:28 | Outpatient (CLI) | payer MEDICARE, OTHER, SELFPAY ==
[2020-11-26 11:54] LABS: Basophils # 0.1 10^3/uL (0.0-0.1); Basophils % 0.7 %; Eosinophils # 0.3 10^3/uL (0.0-0.8); Eosinophils % 3.5 %; Hematocrit 38.7 % (37.0-47.0); Hemoglobin 11.8 g/dL (11.5-15.3); Lymphocytes # 2.6 10^3/uL (0.8-4.8); Lymphocytes % 26.7 %; Mean Corpuscular HGB Conc 30.5 g/dL (30.0-36.0); Mean Corpuscular Hemoglobin 26.2 pg (28.0-34.0); Mean Corpuscular Volume 85.8 fL (81-99); Mean Platelet Volume 9.4 fL (7.4-10.4); Monocytes # 0.8 10^3/uL (0.2-0.9); Monocytes % 8.1 %; Neutrophils # 5.81 10^3/uL (1.8-7.7); Neutrophils % 60.7 %; Nucleated Red Blood Cells % 0 %; Platelet Count 239 10^3/cmm (130-400); Red Blood Count 4.51 10^6/uL (4.1-5.3); Red Cell Distribution Width 16.4 % (12.1-15.1); White Blood Count 9.6 10^3/uL (4.0-10.0)
[2020-11-26 12:13] LABS: Alanine Aminotransferase 23 U/L (0-33); Alkaline Phosphatase 62 IU/L (35-105); Anion Gap 10.5 (5-19); Aspartate Amino Transferase 18 U/L (0-32); Blood Urea Nitrogen 14 mg/dL (8-23); Calcium 8.6 mg/dL (8.5-10.5); Carbon Dioxide 29 mmol/L (22-29); Chloride 102 mmol/L (98-107); Globulin 2.4 g/dL (1.3-4.6); Glucose 95 mg/dL (65-115); Osmolality Calculated 286 mOsm/kg (285-295); Potassium 3.5 mmol/L (3.5-5.1); Sodium 138 mmol/L (136-145); Total Bilirubin 0.3 mg/dL (0.15-1.2); Total Protein 6.4 g/dL (6.6-8.7)
== END 2020-11-26 11:29 | disposition home or self-care (01) ==
PROVIDERS: PCP Electrodiagnostic Medicine; Visit Provider Internal Medicine Critical Care Medicine
DX: I27.20 Pulmonary hypertension, unspecified; I10 Essential (primary) hypertension
CPT/HCPCS: 80053; 85025

== ENCOUNTER 2021-01-10 11:06 | Outpatient (CLI) | payer MEDICARE, OTHER, SELFPAY ==
[2021-01-10 12:30] LABS: Basophils # 0.1 10^3/uL (0.0-0.1); Basophils % 0.4 %; Eosinophils # 0.4 10^3/uL (0.0-0.8); Eosinophils % 3.2 %; Hemoglobin 11.8 g/dL (11.5-15.3); Lymphocytes # 2.8 10^3/uL (0.8-4.8); Lymphocytes % 23.5 %; Mean Corpuscular HGB Conc 30.3 g/dL (30.0-36.0); Mean Corpuscular Volume 85.9 fL (81-99); Mean Platelet Volume 9.6 fL (7.4-10.4); Monocytes # 1.1 10^3/uL (0.2-0.9); Monocytes % 9.6 %; Neutrophils # 7.34 10^3/uL (1.8-7.7); Neutrophils % 62.6 %; Nucleated Red Blood Cells % 0 %; Platelet Count 282 10^3/cmm (130-400); Red Blood Count 4.54 10^6/uL (4.1-5.3); Red Cell Distribution Width 15.7 % (12.1-15.1); White Blood Count 11.7 10^3/uL (4.0-10.0)
== END 2021-01-10 11:07 | disposition home or self-care (01) ==
LOC: LAB 11:12
PROVIDERS: PCP Electrodiagnostic Medicine; Visit Provider Internal Medicine Critical Care Medicine
DX: I10 Essential (primary) hypertension (principal)
CPT/HCPCS: 36415; 85025

== ENCOUNTER → 2021-04-04 10:37 | Outpatient (BNVA) | payer MEDICARE, OTHER, SELFPAY | PROVIDERS: PCP Electrodiagnostic Medicine; Visit Provider Internal Medicine Critical Care Medicine | DX: Z20.822 Contact with and (suspected) exposure to COVID-19 (principal); J84.112 Idiopathic pulmonary fibrosis | CPT/HCPCS: 87635 ==

== ENCOUNTER → 2021-04-13 12:48 | Outpatient (BNVA) | payer MEDICARE, OTHER, SELFPAY | PROVIDERS: PCP Electrodiagnostic Medicine; Visit Provider Internal Medicine Critical Care Medicine | DX: Z01.812 Encounter for preprocedural laboratory examination (principal); Z20.822 Contact with and (suspected) exposure to COVID-19 | CPT/HCPCS: 87635 ==

== ENCOUNTER 2021-04-19 10:31 | Outpatient (CLI) | payer MEDICARE, OTHER, SELFPAY ==
--- NOTE | 2021-04-19 13:46 | PFTS_ITS ---
Date of Study:04/19/21 Date of Dictation: MECHANICS: Forced vital capacity (FVC) is reduced. Forced expiratory volume in one second (FEV1) is reduced. FEV1/FVC is normal. FLOW VOLUME LOOP: Narrow. LUNG VOLUMES: Not measured DIFFUSING CAPACITY FOR CARBON MONOXIDE: Severely reduced. INTERPRETATION: The prebronchodilator spirometry is consistent with moderately severe restriction. Gas exchange (DLCO) is severely reduced. MTDD
== END 2021-04-19 10:32 | disposition home or self-care (01) ==
PROVIDERS: PCP Electrodiagnostic Medicine; Visit Provider Internal Medicine Critical Care Medicine
DX: J84.112 Idiopathic pulmonary fibrosis (principal)
CPT/HCPCS: 94010; 94729

== ENCOUNTER 2021-05-31 19:12 | Emergency (ER) | payer MEDICARE, OTHER, SELFPAY ==
--- NOTE | 2021-05-31 19:19 | PC.NURSE ---
[facility] arrived to [facility] patient's heart stopped. CPR initiated in the back of the ambulance. EMS placed and Igel in the back of the ambulance.
--- NOTE | 2021-05-31 19:38 | ED_ITS ---
HPI - General Adult General: Chief complaint: Cardiac Arrest/CPR Stated complaint: code blue Time Seen by Provider: 05/31/21 19:23 History of Present Illness: HPI narrative: CC: PEA Cardiac Arrest HPI: [71]yo patient w/ hx of pulmonary fibrosis end stage BIBA for witnessed cardiac arrest. Per family, patient has been dyspneic for the last 3 days. Earlier today, patient's sister called EMS due to worsening dyspnea. Patient was satting at 75% on RA. By the time patient arrived at the ambulance bay, patient had a witnessed PEA arrest. EMS performed 8 minutes of CRP. En route patient received 1 mg of epinephrine and supraglottic airway in place. Onset: 8 minutes ago Duration: ongoing, unclear duration Location: home Severity: severe Review of Systems Narrative: REVIEW OF SYSTEMS unable to obtain due to Cardiac arrest [facility] ED PFSH: Medical History (Updated 05/31/21 @ 19:38 by Sixto Cross MD) CAD (coronary artery disease) Emphysema, unspecified Essential (primary) hypertension Surgical History H/O tubal ligation Hx of CABG Family History Mother Heart disease Diabetes Father Heart disease Brother Heart disease Social History Smoking and tobacco status: former smoker Quit status (tobacco): has quit using tobacco Year quit tobacco: 2014 - 1PPD x 25 Years Second hand smoke exposure: No Smoking risk assessment/counseling performed?: No Alcohol intake: never Lives independently: Yes Household members: none Marital status: Current occupational status: retired History of recent travel: No Current gender identity: Female Physical Exam Narrative: EXAM NARRATIVE: Head: No signs of visible trauma Eyes: []Pupils midsized and non-reactive ENT: []iGel in place NECK: No visible signs of trauma or injuries LUNGS: Breath sounds present with BVM CV: No pulse ABDOMEN: In cardiac arrest, unable to assess EXTREMITY: cool extremities SKIN: In cardiac arrest, unable to assess NEURO: GCS 3, unresponsive PSYCH: In cardiac arrest, Unable to assess MDM - General Adult MDM Narrative: Medical decision making narrative: [71] yo F w/ hx of end stage pulmonary fibrosis BIBA in PEA cardiac arrest. Pre-hospital: Down time prior to EMS: none Total CPR time: 8 Meds: 1 epi ED: Initial rhythm: PEA Total CPR time: 21 minutes # of epi used: 6 # of bicarb used: 2 # of magnesium used: 0 # of calcium used: 1 Access: I/O, IV Airway: iGel At [7:30] patient is unable to regain any mechanical pulse. On exam, patient does not appear to have any signs of life at this time. Bedside ultrasound did not show any significant improvement in cardiac activity. Given prolonged resuscitation, high quality CPR, persistent organized rhythm, decision was made to terminate resuscitation Case was discussed with patient's brother and sister in the emergency room. Discharge Plan Discharge Patient Disposition: Clinical Impression: Cardiac arrest Condition: Stable Prescriptions: No Action cholecalciferol (vitamin D3) 100 mcg (4,000 unit) capsule 100 mcg PO DAILY RF: 0 vitamin B complex [B Complex-Vitamin B12] Tablet 1 tab PO DAILY RF: 0 esomeprazole magnesium [Nexium] 40 mg capsule,delayed release(DR/EC) 40 mg PO DAILY RF: 0 alprazolam [Xanax] 0.25 mg tablet 0.25 mg PO BID RF: 0 prednisone 5 mg tablet 15 mg PO DAILY RF: 0 moxifloxacin 400 mg tablet 400 mg PO DAILY 10 Days Qty: 10 RF: 0 clopidogrel 75 mg tablet 75 mg PO DAILY Qty: 90 RF: 3 metoprolol tartrate 50 mg tablet 50 mg PO BID Qty: 90 RF: 3 nintedanib 150 mg capsule 150 mg PO Q12H 30 Days Qty: 60 RF: 3 aspirin 81 mg Tablet,Delayed Release (Dr/Ec) 81 mg PO DAILY Qty: 30 RF: 3 Referrals: Kings Diehl DO [Primary Care Provider] - Coding Level of Care Code ED Motorcycle Riding Instructor for Fely Bryan
[2021-05-31 19:40] LABS: Glucose Point of Care 149 mg/dL (70-110)
--- NOTE | 2021-06-01 01:47 | PC.NURSE ---
Refer to Cardiopulmonary Arrest Flow Sheet for Code Blue notes
--- NOTE | 2021-06-01 01:53 | PC.NURSE ---
MTS notified of pt . Pt is not candidate for donation due to possible covid infection. [facility] Coordinator Sujatha Ref# [id number]. Body cleared for release to Reji Kim.
--- NOTE | 2021-06-01 07:51 | PC.NURSE ---
this nurse met ambulance in ambulance bay after code called over radio. this nurse took over chest compressions until 191. pulse check at this time. new pads placed; pt in PEA at this time. this nurse traded out chest compressions at this time. pulse checks, epi and bi carb done according to the cpr flow sheet. at [address] madrid called TOD at 193.
== END 2021-05-31 19:31 | disposition expired ==
PROVIDERS: Emergency Provider Emergency Medicine; PCP Electrodiagnostic Medicine
DX: I46.9 Cardiac arrest, cause unspecified (principal); Z79.02 Long term (current) use of antithrombotics/antiplatelets; Z79.82 Long term (current) use of aspirin; I25.10 Atherosclerotic heart disease of native coronary artery without angina pectoris; J43.9 Emphysema, unspecified; I10 Essential (primary) hypertension; Z95.1 Presence of aortocoronary bypass graft; Z87.891 Personal history of nicotine dependence
CPT/HCPCS: 36416; 82962; 99285; 99291